=== PATIENT | male | born 1995 | race Caucasian/White ===

== ENCOUNTER 2020-12-12 02:41 | Emergency (ER) | payer SELFPAY ==
[~2020-12-12] VITALS: Ht 177.8 cm; Wt 79.4 kg
[2020-12-12 02:41] VITALS: BP_SYST 117
[2020-12-12 03:20] VITALS: BP_SYST 126
== END 2020-12-12 03:20 ==
LOC: SED 02:41
DX: Z02.89 Encounter for other administrative examinations (principal); V43.52XA Car driver injured in collision with other type car in traffic accident, initial encounter; Y93.89 Activity, other specified; Y92.411 Interstate highway as the place of occurrence of the external cause; Y99.8 Other external cause status
CPT/HCPCS: 99283